=== PATIENT | female | born 1980 | race Caucasian/White ===

== ENCOUNTER 2018-03-19 20:43 | Emergency (ER) | payer SELFPAY ==
[2018-03-19 21:10] VITALS: BP 156/75; PULSE 107; TEMP 99.2; BMI 27.4
--- NOTE | 2018-03-19 21:55 | PDOC ---
History of Present Illness <KermitYoselinfior Moss - Last Filed: 03/19/18 22:07> - General History Source: Patient Exam Limitations: No Limitations - History of Present Illness Initial Comments: 03/19/18 22:14 The patient is a 37 year old female, with a significant past medical history of fibroids, who presents to the emergency department with, foreign body in the vagina. As per patient, she recently had an unknown procedure to remove a fibroid on 03/[address] Meza. She notes vaginal discomfort and brown foul smelling discharge in the days following. Today she notes removing a piece of gauze from her vagina prompting her visit to the ER today. She denies recent fevers, chills, headache or dizziness. She denies recent nausea, vomit, diarrhea or constipation. She denies recent dysuria, frequency, urgency or hematuria. She denies recent chest pain or shortness of breath. Allergies: Pineapple. Past surgical history: Fibroid removal. OBGYN: Dr. Meza <Jonathan Julio - Last Filed: 03/19/18 22:18> - General Chief Complaint: Foreign Body (FB) Stated Complaint: FOREIGN OBJECT Time Seen by Provider: 03/19/18 21:21 Past History - Past Medical History COPD: No - Suicide/Smoking/Psychosocial Hx Smoking History: Never smoked Have you smoked in the past 12 months: No Information on smoking cessation initiated: No Hx Alcohol Use: No Drug/Substance Use Hx: No Substance Use Type: None <Yoselin Carmen - Last Filed: 03/19/18 22:07> <Jonathan Julio - Last Filed: 03/19/18 22:18> - Past Medical History Allergies/Adverse Reactions: Allergies Allergy/AdvReac Type Severity Reaction Status Date / Time No Known Drug Allergies Allergy Verified 03/19/18 21:10 pineapple Allergy "THROAT IS Verified 03/19/18 21:10 ITCHY" Home Medications: Ambulatory Orders Cholecalciferol (Vitamin D3) [Vitamin D3] 5,000 unit PO DAILY 03/29/16 Ferrous Sulfate 325 mg PO DAILY 03/29/16 Cephalexin [Keflex] 500 mg PO QID 03/19/18 Review of Systems - Review of Systems Able to Perform ROS?: Yes Comments:: 03/19/18 22:14 CONSTITUTIONAL: Absent: fever, chills, diaphoresis, generalized weakness, malaise, loss of appetite HEENT: Absent: rhinorrhea, nasal congestion, throat pain, throat swelling, difficulty swallowing, mouth swelling, ear pain, eye pain, visual Changes CARDIOVASCULAR: Absent: chest pain, syncope, palpitations, irregular heart rate, lightheadedness , peripheral edema RESPIRATORY: Absent: cough, shortness of breath, dyspnea with exertion, orthopnea, wheezing, stridor, hemoptysis GASTROINTESTINAL: Absent: abdominal pain, abdominal distension, nausea, vomiting, diarrhea, constipation, melena, hematochezia GENITOURINARY: Present: Vaginal discomfort. Brown discharge. Absent: dysuria, frequency, urgency, hesitancy, hematuria, flank pain MUSCULOSKELETAL: Absent: myalgia, arthralgia, joint swelling SKIN: Absent: rash, itching, pallor HEMATOLOGIC/IMMUNOLOGIC: Absent: easy bleeding, easy bruising, lymphadenopathy, frequent infections ENDOCRINE: Absent: unexplained weight gain, unexplained weight loss, heat intolerance, cold intolerance NEUROLOGIC: Absent: headache, focal weakness or paresthesias, dizziness, unsteady gait, seizure, mental status changes, bladder or bowel incontinence PSYCHIATRIC: Absent: anxiety, depression, suicidal or homicidal ideation, hallucinations. All Other Systems: Reviewed and Negative <Jonathan Julio - Last Filed: 03/19/18 22:18> *Physical Exam - Vital Signs Last Vital Signs Temp Pulse Resp BP Pulse Ox 99.2 F 107 H 17 156/75 100 03/19/18 21:06 03/19/18 21:06 03/19/18 21:06 03/19/18 21:06 03/19/18 21:06 <Yoselin Carmen - Last Filed: 03/19/18 22:07> - Vital Signs Last Vital Signs Temp Pulse Resp BP Pulse Ox 99.2 F 107 H 17 156/75 100 03/19/18 21:06 03/19/18 21:06 03/19/18 21:06 03/19/18 21:06 03/19/18 21:06 - Physical Exam Comments: 03/19/18 22:14 GENERAL: Well developed, well nourished. Awake and alert. No acute distress. HEENT: Normocephalic, atraumatic. PERRLA, EOMI. No conjunctival pallor. Sclera are non- icteric. Moist mucous membranes. Oropharynx is clear. NECK: Supple. Full ROM. No JVD. Carotid pulses 2+ and symmetric, without bruits. No thyromegaly. No lymphadenopathy. CARDIOVASCULAR: Regular rate and rhythm. No murmurs, rubs, or gallops. Distal pulses are 2+ and symmetric. PULMONARY: No evidence of respiratory distress. Lungs clear to auscultation bilaterally. No wheezing, rales or rhonchi. ABDOMINAL: Soft. Non-tender. Non-distended. No rebound or guarding. No organomegaly. Normoactive bowel sounds. PELVIC: Speculum exam done by Dr. Singh. MUSCULOSKELETAL Normal range of motion at all joints. No bony deformities or tenderness. No CVA tenderness. EXTREMITIES: No cyanosis. No clubbing. No edema. No calf tenderness. SKIN: Warm and dry. Normal capillary refill. No rashes. No jaundice. NEUROLOGICAL: Alert, awake, appropriate. Cranial nerves 2-12 intact. No deficits to light touch and temperature in face, upper extremities and lower extremities. No motor deficits in the in face, upper extremities and lower extremities. Normoreflexic in the upper and lower extremities. Normal speech. Toes are down- going bilaterally. Gait is normal without ataxia. PSYCHIATRIC: Cooperative. Good eye contact. Appropriate mood and affect. <Jonathan Julio - Last Filed: 03/19/18 22:18> Medical Decision Making - Medical Decision Making 03/19/18 22:03 Dr Whitehead came and did the pt's pelvic Exam and did not find any more gauze in vaginal vault <Yoselin Carmen - Last Filed: 03/19/18 22:07> - Medical Decision Making 03/19/18 9:30pm Call placed to Dr. Meza, patient's OBGYN, case discused with covering physician. 10:00pm Call placed to Dr. Avelar, OB water control station engineer, case was discussed. <Jonathan Julio - Last Filed: 03/19/18 22:18> *DC/Admit/Observation/Transfer <Yoselin Carmen - Last Filed: 03/19/18 22:07> - Attestations Scribe Attestion: 03/19/18 22:14 Documentation prepared by Jonathan Julio, acting as registered medical assistant for Yoselin Carmen MD. <Jonathan Julio - Last Filed: 03/19/18 22:18> Diagnosis at time of Disposition: Foreign body accidentally left during procedure Qualifiers: Encounter type: initial encounter Qualified Code(s): T81.509A - Unspecified complication of foreign body accidentally left in body following unspecified procedure, initial encounter - Discharge Dispostion Disposition: HOME Condition at time of disposition: Stable - Referrals Referrals: Darian Tejada MD [Staff Physician] - - Patient Instructions Printed Discharge Instructions: DI for Foreign Body in Vagina-Adult Additional Instructions: keep your ergonomics consultant appointment
--- NOTE | 2018-03-19 22:29 | CON.OBG ---
Consult Consult Specialty:: [employer] Referred by:: Dr. Carmen Reason for Consultation:: Foreign carlos in the vagina - History of Present Illness Chief Complaint: Foul smelling vaginal discharge History of Present Illness: 37 yo status post cervical myomectomy 4 days ago, presents to ER c/o foul smelling vaginal discharge along with presence of foreign bodies in the vagina. In the ER, a gauze came out of the vagina. [employer] called for evaluation. Patient was seen and evaluated. - History Source History Provided By: Patient Limitations to Obtaining History: No Limitations - Past Medical History ...: No - Past Surgical History Additional Surgical History: Myomectomy - Alcohol/Substance Use Hx Alcohol Use: No History of Substance Use: reports: None - Smoking History Smoking history: Never smoked Have you smoked in the past 12 months: No - Social History History of Recent Travel: No Home Medications - Allergies Allergies/Adverse Reactions: Allergies Allergy/AdvReac Type Severity Reaction Status Date / Time No Known Drug Allergies Allergy Verified 03/19/18 21:10 pineapple Allergy "THROAT IS Verified 03/19/18 21:10 ITCHY" - Home Medications Home Medications: Ambulatory Orders Cholecalciferol (Vitamin D3) [Vitamin D3] 5,000 unit PO DAILY 03/29/16 Ferrous Sulfate 325 mg PO DAILY 03/29/16 Cephalexin [Keflex] 500 mg PO QID 03/19/18 Family Disease History - Family Disease History Family History: Unremarkable Review of Systems - Review of Systems Constitutional: reports: No Symptoms Eyes: reports: No Symptoms HENT: reports: No Symptoms Neck: reports: No Symptoms Cardiovascular: reports: No Symptoms Respiratory: reports: No Symptoms Gastrointestinal: reports: No Symptoms Genitourinary: reports: Other (Malodorous vaginal discharge) Breasts: reports: No Symptoms Reported Musculoskeletal: reports: No Symptoms Integumentary: reports: No Symptoms Neurological: reports: No Symptoms Endocrine: reports: No Symptoms Hematology/Lymphatic: reports: No Symptoms Psychiatric: reports: No Symptoms Pain Intensity: 2 Physical Exam-[employer] Vital Signs: Vital Signs Temperature 99.2 F 03/19/18 21:06 Pulse Rate 107 H 03/19/18 21:06 Respiratory Rate 17 03/19/18 21:06 Blood Pressure 156/75 03/19/18 21:06 O2 Sat by Pulse Oximetry (%) 100 09/17/18 21:06 Constitutional: Yes: Well Nourished Eyes: Yes: Conjunctiva Clear HENT: Yes: Atraumatic Neck: Yes: Supple Cardiovascular: Yes: Regular Rate and Rhythm Respiratory: Yes: Regular Gastrointestinal: Yes: Normal Bowel Sounds External Genitalia: Yes: Normal Vaginal Exam: Yes: Other (No additional gauzes found) Cervix: Yes: Erosion. No: Cerv Motion Tenderness Uterus: Yes: Normal Extremities: Yes: WNL Neurological: Yes: Alert, Oriented ...Motor Strength: WNL Psychiatric: Yes: Alert, Oriented Assessment/Plan Status post myomectomy Foreign body in the vagina Continue antibiotic F/U for post op care in clinic
== END 2018-03-19 22:15 | disposition home or self-care (01) ==
LOC: JER 20:43
DX: T81.509A Unspecified complication of foreign body accidentally left in body following unspecified procedure, initial encounter (principal); X58.XXXA Exposure to other specified factors, initial encounter; Y92.9 Unspecified place or not applicable
CPT/HCPCS: 99282-25

== ENCOUNTER 2023-01-13 17:59 | Inpatient (IN) | payer OTHER ==
[2023-01-13] MEDS ORDERED: ACETAMINOPHEN 1000 MG/100 ML BAG IVPB ONE (19:45)
[2023-01-13] MEDS ORDERED: ACETAMINOPHEN INJECTION 100 ML IVPB ONE (20:00)
[2023-01-13 20:24] LABS: BASO % 0.7 % (0-2.0); EOS % 1.2 % (0-4.5); HEMATOCRIT 35.4 % (32.4-45.2); HEMOGLOBIN 10.8 GM/dL (10.7-15.3); LYMPH % 23.1 % (8-40); MCH 22.3 pg (25.7-33.7); MCHC 30.6 g/dl (32.0-36.0); MEAN CELL VOLUME 72.9 fl (80-96); MEAN PLT VOLUME 8.2 fl (7.5-11.1); MONO % 6.8 % (3.8-10.2); NEUT % 68.2 % (42.8-82.8); PLATELET COUNT 337 10^3/uL (134-434); RBC 4.86 M/mm3 (3.60-5.2); RDW 17.9 % (11.6-15.6); WHITE BLOOD COUNT 7.6 K/mm3 (4.0-10.0)
[2023-01-13 20:37] LABS: POTASSIUM 3.9 mmol/L (3.5-5.1)
[2023-01-13 20:39] LABS: CALCIUM 9.4 mg/dL (8.5-10.1)
[2023-01-13 20:40] LABS: BLOOD UREA NITROGEN 10.4 mg/dL (7-18)
[2023-01-13 20:42] LABS: PH,URINE 5.5 (5.0-8.0); URINE APPEARANCE CLEAR; URINE BILIRUBIN NEGATIVE (NEGATIVE); URINE COLOR YELLOW; URINE GLUCOSE (UA) NEGATIVE (NEGATIVE); URINE KETONE 1+ (NEGATIVE); URINE LEUK ESTERASE NEGATIVE (NEGATIVE); URINE NITRITE NEGATIVE (NEGATIVE); URINE PROTEIN NEGATIVE (NEGATIVE); URINE UROBILINOGEN 0.2 mg/dL (0.2-1.0)
[2023-01-13 20:43] LABS: CREATININE 0.9 mg/dL (0.55-1.3)
[2023-01-13 20:44] LABS: BILIRUBIN,TOTAL 0.5 mg/dL (0.2-1); TOT PROT 7.7 g/dl (6.4-8.2)
[2023-01-13 20:45] LABS: HCG,QUALITATIVE URINE Negative
[2023-01-13 23:52] LABS: INR 1.07 (0.83-1.09); PROTHROMBIN TIME (PATIENT) 12.4 SEC (9.7-13.0)
[2023-01-13 23:54] LABS: ACTIVATED PTT 24.9 SECONDS (25.2-36.5)
[2023-01-14 05:56] LABS: BASO % 0.3 % (0-2.0); EOS % 0.7 % (0-4.5); HEMATOCRIT 33.6 % (32.4-45.2); HEMOGLOBIN 10.4 GM/dL (10.7-15.3); LYMPH % 24.2 % (8-40); MCH 22.3 pg (25.7-33.7); MCHC 31.1 g/dl (32.0-36.0); MEAN CELL VOLUME 71.6 fl (80-96); MEAN PLT VOLUME 8.4 fl (7.5-11.1); MONO % 7.7 % (3.8-10.2); NEUT % 67.1 % (42.8-82.8); PLATELET COUNT 314 10^3/uL (134-434); RBC 4.69 M/mm3 (3.60-5.2); RDW 17.8 % (11.6-15.6); WHITE BLOOD COUNT 6.3 K/mm3 (4.0-10.0)
[2023-01-14] MEDS ORDERED: LACTATED RINGERS SOLUTION 1,000 ML/1,000 ML INFUS.BAG IV SCH (06:15)
[2023-01-14 09:39] LABS: HEMATOCRIT 32.8 % (32.4-45.2); HEMOGLOBIN 10.3 GM/dL (10.7-15.3); MCH 22.6 pg (25.7-33.7); MCHC 31.4 g/dl (32.0-36.0); MEAN CELL VOLUME 71.9 fl (80-96); MEAN PLT VOLUME 8.3 fl (7.5-11.1); PLATELET COUNT 309 10^3/uL (134-434); RBC 4.56 M/mm3 (3.60-5.2); RDW 18.3 % (11.6-15.6); WHITE BLOOD COUNT 5.3 K/mm3 (4.0-10.0)
[2023-01-14 09:55] LABS: ALBUMIN 3.8 g/dl (3.4-5.0)
[2023-01-14 09:56] LABS: CALCIUM 9.1 mg/dL (8.5-10.1)
[2023-01-14 09:57] LABS: BLOOD UREA NITROGEN 8.8 mg/dL (7-18)
[2023-01-14 09:59] LABS: CREATININE 0.8 mg/dL (0.55-1.3)
[2023-01-14 10:00] LABS: TOT PROT 7.2 g/dl (6.4-8.2)
[2023-01-14] MEDS ORDERED: ENOXAPARIN NA (PORCINE) 40 MG/0.4 ML DISP.SYRIN SQ SCH (10:00)
[2023-01-14] MEDS ORDERED: PANTOPRAZOLE 20 MG TABLET PO SCH (10:00)
[2023-01-14] MEDS ORDERED: FERROUS SO4 325 MG TABLET (FP) PO SCH (10:00)
[2023-01-14] MEDS ORDERED: CHOLECALCIFEROL (VIT D3) 1,000 UNIT (25 MCG) TABLET PO SCH (10:00)
[2023-01-14 10:01] LABS: BILIRUBIN,TOTAL 0.5 mg/dL (0.2-1)
[2023-01-14] MEDS ORDERED: SUCCINYLCHOLINE CHLORIDE 200 MG/10 ML SYRINGE ONE (11:13)
[2023-01-14] MEDS ORDERED: PROPOFOL 20 ML ONE ×2 (11:13→12:53)
[2023-01-14] MEDS ORDERED: ROCURONIUM BROMIDE 50 MG/5 ML SYRINGE ONE (11:13)
[2023-01-14] MEDS ORDERED: ALBUTEROL SO4 HFA INHALER IH ONE (11:16)
[2023-01-14] MEDS ORDERED: MIDAZOLAM HCL 2 MG/2 ML SINGLE DOSE VIAL ONE (12:00)
[2023-01-14] MEDS ORDERED: PROPOFOL 40 ML ONE (12:06)
[2023-01-14] MEDS ORDERED: ceFAZolin SODIUM 1 GM VIAL IVPB ONE (12:20)
[2023-01-14] MEDS ORDERED: BUPIVACAINE HCL/PF 0.25% (2.5MG/ML) 10 ML VIAL IJ ONE (12:32)
[2023-01-14] MEDS ORDERED: PIPERACILLIN/TAZOB 3.375 GM 3.375 GM in DEXTROSE 5%-WATER - 50 ML IVPB SCH (12:45)
[2023-01-14] MEDS ORDERED: ONDANSETRON 4 MG/2 ML VIAL IVPUSH PRN ×2 (13:11→14:11)
[2023-01-14] MEDS ORDERED: LACTATED RINGERS SOLUTION 1,000 ML IV SCH (13:15)
[2023-01-14] MEDS ORDERED: PIPERACILLIN/TAZOBACTAM 3.375 GM VIAL IVPB ONE (13:40)
[2023-01-14] MEDS ORDERED: IBUPROFEN 400 MG TABLET (FP) PO PRN ×2 (13:48→14:11)
[2023-01-14 14:00] VITALS: RESP 18
[2023-01-14] MEDS ORDERED: ACETAMINOPHEN 500 MG TABLET (FP) PO SCH (14:00)
[2023-01-14] MEDS: ACETAMINOPHEN 500 MG TABLET (FP) PO SCH (20:37)
[2023-01-15] MEDS: ACETAMINOPHEN 500 MG TABLET (FP) PO SCH ×2 (02:12→09:42)
[2023-01-15 07:57] VITALS: TEMP 98.7
[2023-01-15] MEDS ORDERED: PANTOPRAZOLE 20 MG TABLET PO SCH (10:00)
[2023-01-15] MEDS ORDERED: FERROUS SO4 325 MG TABLET (FP) PO SCH (10:00)
[2023-01-15] MEDS ORDERED: POLYETHYLENE GLYCOL (HEALTHYLAX) 3350 17 GM PACKET PO SCH (10:00)
[2023-01-15] MEDS ORDERED: CHOLECALCIFEROL (VIT D3) 1,000 UNIT (25 MCG) TABLET PO SCH (10:00)
[2023-01-15] MEDS ORDERED: PIPERACILLIN/TAZOB 3.375 GM 3.375 GM in DEXTROSE 5%-WATER - 50 ML IVPB SCH ×2 (10:00→18:00)
[2023-01-15] MEDS ORDERED: ENOXAPARIN NA (PORCINE) 40 MG/0.4 ML DISP.SYRIN SQ SCH (10:00)
[2023-01-15 13:24] VITALS: BP 128/74; PULSE 101
[2023-01-15 13:44] VITALS: BMI 25.3
[2023-01-17] MEDS ORDERED: METHOTREXATE 2.5 MG TABLET PO SCH ×2 (10:00)
== END 2023-01-15 02:00 | disposition home or self-care (01) | DRG 225 ==
LOC: JER 17:59 → JERBED 22:51 → J8W 01-14 03:16
PROVIDERS: ADMIT Internal Medicine; ATTEND Internal Medicine
PROC: 0DTJ4ZZ Resection of Appendix, Percutaneous Endoscopic Approach (ICD-10-PCS; principal; 2023-01-14 11:51)
DX: K35.80 Unspecified acute appendicitis (principal); K76.0 Fatty (change of) liver, not elsewhere classified; D64.9 Anemia, unspecified; M06.9 Rheumatoid arthritis, unspecified; N83.209 Unspecified ovarian cyst, unspecified side; N92.1 Excessive and frequent menstruation with irregular cycle
CPT/HCPCS: 0241U-QW; 36415; 74177-TC; 76830-TC; 80053; 81003; 84703; 85025; 85027; 85610; 85730; 86850; 86900; 86901; 87086; 88304-TC; 93005; 93010; 94760; 99285-25; Q9967